=== PATIENT | male | born 2000 | race Caucasian/White ===

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

== ENCOUNTER 2022-07-02 20:42 | Emergency (ER) | payer OTHER, MEDICAID ==
[~2022-07-02] VITALS: Ht 170.2 cm; Wt 65.0 kg
[~2022-07-02 20:42] MED LIST: ALBU05 NEB; ALBU6.7H9 INH; P50 MT
[2022-07-02 22:35] VITALS: BP 0/0
== END 2022-07-02 22:45 ==
LOC: ER 20:42
DX: Z02.79 Encounter for issue of other medical certificate (principal); T65.891A Toxic effect of other specified substances, accidental (unintentional), initial encounter; Y35.213A Legal intervention involving injury by tear gas, suspect injured, initial encounter; Y93.89 Activity, other specified; Y92.9 Unspecified place or not applicable
CPT/HCPCS: 99283

== ENCOUNTER 2022-12-22 14:54 | Emergency (ER) | payer MEDICAID, OTHER ==
[~2022-12-22] VITALS: Ht 177.8 cm; Wt 73.0 kg
[~2022-12-22 14:54] MED LIST changes: +ALBU6.7H3 INH; -ALBU6.7H9 INH
[2022-12-22 15:05] VITALS: BP 115/85
== END 2022-12-22 20:34 | disposition left against medical advice (07) ==
LOC: ER 14:54
DX: Z53.21 Procedure and treatment not carried out due to patient leaving prior to being seen by health care provider (principal)
CPT/HCPCS: 99281

== ENCOUNTER 2024-04-03 13:05 | Emergency (ER) | payer MEDICAID ==
[~2024-04-03] VITALS: Ht 180.3 cm; Wt 72.6 kg
[2024-04-03 13:43] VITALS: O2SAT 100
[2024-04-03] MEDS ORDERED: IBUPROFEN 600MG TABLET PO STA (14:47)
[2024-04-03] MEDS ORDERED: IBUP-2029 PO (15:49)
[2024-04-03] MEDS: IBUPROFEN 600MG TABLET PO NR (16:39)
[2024-04-03 17:04] VITALS: BP 128/72; PULSE 88; RESP 18; TEMP 98.7
== END 2024-04-03 17:06 | disposition home or self-care (01) ==
LOC: ER 13:05
DX: S92.352A Displaced fracture of fifth metatarsal bone, left foot, initial encounter for closed fracture (principal); S93.492A Sprain of other ligament of left ankle, initial encounter; J45.909 Unspecified asthma, uncomplicated; Z90.89 Acquired absence of other organs; X58.XXXA Exposure to other specified factors, initial encounter; Y93.89 Activity, other specified; Y92.89 Other specified places as the place of occurrence of the external cause; Y99.8 Other external cause status
CPT/HCPCS: 73610; 73630; 29515; 99284; Z7610